=== PATIENT | male | born 1965 | race African-American/Black ===

== ENCOUNTER 2022-09-21 12:41 | Emergency (ER) | payer MEDICAID ==
[~2022-09-21] VITALS: Ht 175.3 cm; Wt 99.0 kg
[2022-09-21 13:25] VITALS: BP 136/77
[2022-09-21] MEDS ORDERED: IBUP-1525 MT (18:42)
[2022-09-21] MEDS ORDERED: P50 MT (18:42)
[2022-09-21] MEDS ORDERED: ALBU18HF2 IH (18:42)
[2022-09-21] MEDS ORDERED: MUPI15CR11 TP (18:42)
[2022-09-21] MEDS ORDERED: SULF1TAB48 MT (18:42)
== END 2022-09-21 19:30 | disposition home or self-care (01) ==
LOC: ER 13:10
DX: J44.1 Chronic obstructive pulmonary disease with (acute) exacerbation (principal); L08.9 Local infection of the skin and subcutaneous tissue, unspecified; Z53.21 Procedure and treatment not carried out due to patient leaving prior to being seen by health care provider
CPT/HCPCS: 99281